=== PATIENT | male | born 1960 | race Caucasian/White ===

== ENCOUNTER 2017-02-15 13:38 | Emergency (ER) | payer OTHER ==
[~2017-02-15] VITALS: Ht 188 cm; Wt 111.4 kg
[2017-02-15] MEDS ORDERED: LISI1TAB7 PO (14:04)
[2017-02-15] MEDS ORDERED: KETOROLAC 30 MG/1 ML ONE (14:14)
[2017-02-15] MEDS ORDERED: DIAZEPAM 5 MG TABLET ONE (14:14)
[2017-02-15] MEDS ORDERED: KETOROLAC 30 MG/1 ML IM ONE (14:30)
[2017-02-15] MEDS ORDERED: DIAZEPAM 5 MG TABLET PO ONE (14:30)
[2017-02-15 15:30] VITALS: BP 162/87
== END 2017-02-15 15:33 ==
LOC: ED 14:43
DX: S39.012A Strain of muscle, fascia and tendon of lower back, initial encounter (principal); M47.896 Other spondylosis, lumbar region; X58.XXXA Exposure to other specified factors, initial encounter; Y93.89 Activity, other specified; Y92.89 Other specified places as the place of occurrence of the external cause; Y99.9 Unspecified external cause status
CPT/HCPCS: 72110; 96372; 99284; J1885

== ENCOUNTER 2017-02-21 19:18 | Emergency (ER) | payer OTHER ==
[~2017-02-21] VITALS: Ht 188 cm; Wt 109.5 kg
[~2017-02-21 19:18] MED LIST: LISI1TAB7 PO
[2017-02-21 19:20] VITALS: BP 167/102
[2017-02-21] MEDS ORDERED: HYDROcodone/APAP 5/325 TABLET ONE (20:14)
[2017-02-21] MEDS ORDERED: HYDROcodone/APAP 5/325 TABLET PO ONE (20:30)
== END 2017-02-21 20:27 | disposition home or self-care (01) ==
LOC: ED 20:21
DX: M54.42 Lumbago with sciatica, left side (principal); M62.830 Muscle spasm of back
CPT/HCPCS: 99283; J7512

== ENCOUNTER → 2020-02-14 | Outpatient (CLI) | payer OTHER ==
[~2020-02-14] MED LIST changes: +LISI1TAB20 PO; -LISI1TAB7 PO
== END | disposition home or self-care (01) ==
LOC: RAD 08:29
PROVIDERS: ATTEND Internal Medicine Cardiovascular Disease
DX: I82.409 Acute embolism and thrombosis of unspecified deep veins of unspecified lower extremity (principal); R60.9 Edema, unspecified; R06.02 Shortness of breath; I48.0 Paroxysmal atrial fibrillation; I10 Essential (primary) hypertension
CPT/HCPCS: 93970

== ENCOUNTER → 2020-02-29 | Outpatient (CLI) | payer OTHER | END | disposition home or self-care (01) | LOC: CVU 06:40 | PROVIDERS: ATTEND Internal Medicine Cardiovascular Disease | DX: I35.8 Other nonrheumatic aortic valve disorders (principal); I48.0 Paroxysmal atrial fibrillation; I10 Essential (primary) hypertension | CPT/HCPCS: C8929; Q9957 ==

== ENCOUNTER 2020-03-14 07:05 | Outpatient (CLI) | payer OTHER | END 2020-03-14 23:59 | disposition home or self-care (01) | LOC: CFH 07:05 | PROVIDERS: ATTEND Internal Medicine Cardiovascular Disease | DX: I25.10 Atherosclerotic heart disease of native coronary artery without angina pectoris (principal); I21.19 ST elevation (STEMI) myocardial infarction involving other coronary artery of inferior wall; I82.409 Acute embolism and thrombosis of unspecified deep veins of unspecified lower extremity; I25.9 Chronic ischemic heart disease, unspecified; I25.5 Ischemic cardiomyopathy; I10 Essential (primary) hypertension | CPT/HCPCS: 78452; 93017; A9502 ==

== ENCOUNTER 2020-04-26 07:57 | Inpatient (IN) | payer OTHER ==
[~2020-04-26] VITALS: Ht 188 cm; Wt 134.0 kg
[~2020-04-26 07:57] MED LIST changes: +CEFUROXIME 1.5 GM in SODIUM CHLORIDE 0.9% 50 ML IVPB ONE; +VANCOMYCIN 1,500 MG in SODIUM CHLORIDE 0.9% 250 ML IVPB ONE
[2020-04-26] MEDS ORDERED: DIPHENHYDRAMINE 50 MG/ML, 1ML IVPush ONE (08:30)
[2020-04-26 08:33] VITALS: BP 120/76
[2020-04-26] MEDS ORDERED: OXYC-307 PO (08:47)
[2020-04-26] MEDS ORDERED: METO-93 PO (08:47)
[2020-04-26] MEDS ORDERED: LISI-170 PO (08:47)
[2020-04-26] MEDS ORDERED: CHLO25TA PO (08:47)
[2020-04-26] MEDS ORDERED: APIX5TAB PO (08:47)
[2020-04-26] MEDS ORDERED: FURO20TA3 PO (08:47)
[2020-04-26] MEDS ORDERED: POTA20TA6 PO (08:47)
[2020-04-26] MEDS ORDERED: METH750T87 PO (08:47)
[2020-04-26] MEDS ORDERED: GABA800T5 PO (08:47)
[2020-04-26] MEDS ORDERED: ASPI-650 PO (08:55)
[2020-04-26] MEDS ORDERED: VERAPAMIL 2.5 MG/ML, 2ML ONE (09:34)
[2020-04-26] MEDS ORDERED: FENTANYL PF 100 MCG/2ML ONE (09:34)
[2020-04-26] MEDS ORDERED: MIDAZOLAM 1 MG/ML, 5ML ONE (09:34)
[2020-04-26] MEDS ORDERED: HEPARIN 1,000 UNITS/ML, 10ML ONE (09:34)
[2020-04-26] MEDS ORDERED: LIDOCAINE-MPF 1%, 5ML ONE (09:34)
[2020-04-26] MEDS ORDERED: DIPHENHYDRAMINE 50 MG/ML, 1ML ONE (10:12)
[2020-04-26] MEDS: SODIUM CHLORIDE 0.9% 1,000 ML IV SCH ×2 (10:53→17:44)
[2020-04-26] MEDS ORDERED: SODIUM CHLORIDE 0.9% 1,000 ML IV SCH (11:00)
[2020-04-26] MEDS ORDERED: GABAPENTIN 400 MG CAPSULE ONE (12:52)
[2020-04-26] MEDS ORDERED: CHLORHEXIDINE 15 ML UDC MM PRN (13:00)
[2020-04-26] MEDS: CHLORTHALIDONE 25 MG TABLET PO SCH (13:00)
[2020-04-26] MEDS ORDERED: INSULIN LISPRO 100 UNITS/ML, PEN SQ-INSULIN SCH (13:00)
[2020-04-26] MEDS: FUROSEMIDE 20 MG TABLET PO SCH (13:00)
[2020-04-26 13:08] LABS: BASOPHILS # (AUTO) 0.03 x10^3/uL (0-0.1); BASOPHILS % (AUTO) 1 % (0-1); EOSINOPHILS # (AUTO) 0.22 x10^3/uL (0-0.4); EOSINOPHILS % (AUTO) 4 % (1-7); LYMPHOCYTES # (AUTO) 1.56 x10^3/uL (1-3.4); LYMPHOCYTES % (AUTO) 29 % (22-44); MD NO; MEAN CORPUSCULAR HEMOGLOBIN 34.2 pg (27.5-34.5); MEAN CORPUSCULAR HGB CONC 33.4 g/dL (33.2-36.2); MEAN CORPUSCULAR VOLUME 102.4 fL (81-97); MEAN PLATELET VOLUME 6.9 fL (7.4-10.4); MONOCYTES # (AUTO) 0.68 x10^3/uL (0.2-0.8); MONOCYTES % (AUTO) 13 % (2-9); NEUTROPHILS # (AUTO) 2.89 x10^3/uL (1.8-6.8); NEUTROPHILS % (AUTO) 54 % (42-75); PLATELET COUNT 168 x10^3/uL (130-400); RED BLOOD COUNT 3.53 x10^6/uL (4.38-5.82); RED CELL DISTRIBUTION WIDTH 14.6 % (9.4-14.8)
[2020-04-26 13:18] LABS: INTERNATIONAL NORMALIZED RATIO 0.98 (0.93-1.1); PROTHROMBIN TIME 10.4 Seconds (9.6-11.5)
[2020-04-26 13:21] LABS: ALANINE AMINOTRANSFERASE 25 U/L (12-78); ALBUMIN 3.1 g/dL (3.4-5.0); ANION GAP 4 mmol/L (5-15); CALCIUM 8.6 mg/dL (8.5-10.1); CHLORIDE 105 mmol/L (98-107)
[2020-04-26 13:23] LABS: ALKALINE PHOSPHATASE 75 U/L (45-117); BILIRUBIN,TOTAL 0.7 mg/dL (0.2-1.0); TOTAL PROTEIN 7.1 g/dL (6.4-8.2)
[2020-04-26 13:58] VITALS: BP 100/64
[2020-04-26] MEDS: GABAPENTIN 400 MG CAPSULE PO SCH ×2 (14:58→21:40)
[2020-04-26] MEDS: OXYcodone/APAP 5/325MG TABLET PO PRN ×2 (15:22→21:45)
[2020-04-26] MEDS: METHOCARBAMOL 750 MG TABLET PO PRN ×2 (15:23→21:45)
[2020-04-26] MEDS ORDERED: GABAPENTIN 400 MG CAPSULE PO SCH (16:00)
[2020-04-26] MEDS: POTASSIUM CHLORIDE 10 MEQ TABLET.ER PO SCH (17:00)
[2020-04-26 17:54] LABS: MICROSCOPIC NOT IND
[2020-04-26 18:44] VITALS: BP 119/77
[2020-04-26] MEDS: SODIUM CHLORIDE FLUSH 10ML SYR IVF SCH (21:40)
[2020-04-27] MEDS: MUPIROCIN OINT 2%, 22GM TP SCH ×2 (00:30→05:46)
[2020-04-27 01:06] VITALS: BP 138/78
[2020-04-27] MEDS: SODIUM CHLORIDE 0.9% 1,000 ML IV SCH (02:53)
[2020-04-27] MEDS ORDERED: METOPROLOL TARTRATE 25 MG TAB PO ONE (05:00)
[2020-04-27] MEDS: OXYcodone/APAP 5/325MG TABLET PO PRN (05:33)
[2020-04-27] MEDS: METHOCARBAMOL 750 MG TABLET PO PRN (05:33)
[2020-04-27] MEDS ORDERED: METOPROLOL SUCCINATE 25 MG TAB.ER.24H PO SCH ×2 (06:00)
[2020-04-27 06:38] VITALS: BP 105/70
[2020-04-27] MEDS: FUROSEMIDE 20 MG TABLET PO SCH (07:40)
[2020-04-27] MEDS: GABAPENTIN 400 MG CAPSULE PO SCH (07:40)
[2020-04-27] MEDS: CHLORTHALIDONE 25 MG TABLET PO SCH (07:40)
[2020-04-27] MEDS: SODIUM CHLORIDE FLUSH 10ML SYR IVF SCH (07:41)
[2020-04-27] MEDS: POTASSIUM CHLORIDE 10 MEQ TABLET.ER PO SCH (07:45)
== END 2020-04-27 10:59 | disposition home health service (06) | DRG 287 ==
LOC: CACL 07:57 → ORIP 12:30 → 5SO 13:26 → DCLOUNGE 04-27 10:48
PROVIDERS: ADMIT Internal Medicine Cardiovascular Disease; ATTEND Internal Medicine Cardiovascular Disease
PROC: 4A023N7 Measurement of Cardiac Sampling and Pressure, Left Heart, Percutaneous Approach (ICD-10-PCS; principal; 2020-04-26)
PROC: B2111ZZ Fluoroscopy of Multiple Coronary Arteries using Low Osmolar Contrast (ICD-10-PCS; 2020-04-26)
PROC: B2151ZZ Fluoroscopy of Left Heart using Low Osmolar Contrast (ICD-10-PCS; 2020-04-26)
DX: I25.10 Atherosclerotic heart disease of native coronary artery without angina pectoris (principal); I48.91 Unspecified atrial fibrillation; I10 Essential (primary) hypertension; I25.82 Chronic total occlusion of coronary artery; Z79.01 Long term (current) use of anticoagulants; Z82.49 Family history of ischemic heart disease and other diseases of the circulatory system
CPT/HCPCS: 36415; 71046; 80053; 81003; 82330; 82803; 82947; 83036; 84132; 84295; 85014; 85025; 85347; 85610; 85730; 86850; 86900; 86923; 87635; 88305; 93005; 93458; 93880; 99156; 99157; C1769; C1894; G0378; J1644; J2250; J3010; J1200; Q9967

== ENCOUNTER 2020-04-30 04:36 | Inpatient (IN) | payer OTHER ==
[~2020-04-30] VITALS: Ht 188 cm; Wt 148.0 kg
[~2020-04-30 04:36] MED LIST changes: +APIX5TAB PO; +ASPI-650 PO; -CEFUROXIME 1.5 GM in SODIUM CHLORIDE 0.9% 50 ML IVPB ONE; +CHLO25TA PO; +FURO20TA3 PO; +GABA800T5 PO; +LISI-170 PO; +METH750T87 PO; +METO-93 PO; +OXYC-307 PO; +POTA20TA6 PO; -VANCOMYCIN 1,500 MG in SODIUM CHLORIDE 0.9% 250 ML IVPB ONE
[2020-04-30] MEDS ORDERED: METOPROLOL TARTRATE 25 MG TAB PO ONE (05:00)
[2020-04-30] MEDS ORDERED: CHLORHEXIDINE 15 ML UDC MM PRN (05:30)
[2020-04-30] MEDS ORDERED: INSULIN LISPRO 100 UNITS/ML, PEN SQ-INSULIN SCH (05:30)
[2020-04-30 05:38] VITALS: BP 108/71
[2020-04-30 05:39] VITALS: BP 109/67
[2020-04-30] MEDS: MUPIROCIN OINT 2%, 22GM TP SCH ×2 (05:45→20:18)
[2020-04-30 06:02] LABS: INTERNATIONAL NORMALIZED RATIO 0.96 (0.93-1.1); PROTHROMBIN TIME 10.2 Seconds (9.6-11.5)
[2020-04-30] MEDS ORDERED: HEPARIN 1,000 UNITS/ML, 10ML ONE (06:15)
[2020-04-30] MEDS ORDERED: PAPAVERINE 30 MG/ML, 2ML ONE (06:15)
[2020-04-30] MEDS ORDERED: FENTANYL PF 250 MCG/5ML ONE ×4 (06:52)
[2020-04-30] MEDS ORDERED: MIDAZOLAM 10MG/2 ML ONE (06:52)
[2020-04-30] MEDS ORDERED: CALCIUM CHLORIDE 13.6 MEQ/10 ML ONE (07:18)
[2020-04-30] MEDS ORDERED: MANNITOL PMX 20% 500 ML IVPB PRN (07:30)
[2020-04-30] MEDS ORDERED: DEXMEDETOMIDINE 200 MCG in SODIUM CHLORIDE 0.9% 48 ML IV PRN ×2 (07:30→07:34)
[2020-04-30] MEDS ORDERED: REGULAR INSULIN 100 UNITS in SODIUM CHLORIDE 0.9% 99 ML IV PRN ×2 (07:30→07:34)
[2020-04-30] MEDS ORDERED: ALBUMIN HUMAN 5% 500 ML IV PRN (07:30)
[2020-04-30] MEDS ORDERED: VANCOMYCIN 1,600 MG in SODIUM CHLORIDE 0.9% 250 ML IV PRN (07:30)
[2020-04-30] MEDS ORDERED: EPINEPHRINE 5 MG in SODIUM CHLORIDE 0.9% 245 ML IV PRN ×2 (07:30→08:00)
[2020-04-30] MEDS ORDERED: POTASSIUM CHLORIDE 80 MEQ, SODIUM BICARBONATE 8.4% 10 MEQ, MAGNESIUM SULFATE 0.5 GM, LI... IV PRN (07:30)
[2020-04-30] MEDS ORDERED: CEFUROXIME 1.5 GM in SODIUM CHLORIDE 0.9% 50 ML IVPB PRN (07:30)
[2020-04-30] MEDS ORDERED: PHENYLEPHRINE 50 MG in SODIUM CHLORIDE 0.9% 245 ML IV PRN ×2 (07:30→07:34)
[2020-04-30] MEDS ORDERED: VASOPRESSIN 20 UNIT in SODIUM CHLORIDE 0.9% 99 ML IV PRN (07:34)
[2020-04-30] MEDS ORDERED: SODIUM CHLORIDE 0.9% 1,000 ML IV PRN (07:34)
[2020-04-30] MEDS ORDERED: DOBUTAMINE 250 MG in SODIUM CHLORIDE 0.9% 230 ML IV PRN (07:34)
[2020-04-30] MEDS ORDERED: NITROGLYCERIN/D5W PMX 250 ML IV PRN (07:34)
[2020-04-30] MEDS ORDERED: PROCHLORPERAZINE 5 MG/ML, 2ML IVPush PRN (08:00)
[2020-04-30] MEDS ORDERED: GLUCAGON 1 MG IM PRN (08:00)
[2020-04-30] MEDS ORDERED: HYDROcodone/APAP 5/325 TABLET PO PRN (08:00)
[2020-04-30] MEDS ORDERED: DEXTROSE 50%, 50ML SYRINGE IVPush PRN (08:00)
[2020-04-30] MEDS ORDERED: DEXTROSE 4 GM TAB.CHEW PO PRN (08:00)
[2020-04-30] MEDS ORDERED: INSULIN REGULAR 100 UNITS/ML, 3ML VIAL IVPush PRN (08:00)
[2020-04-30] MEDS ORDERED: SODIUM BICARB 8.4%, 50ML SYRINGE IV PRN (08:00)
[2020-04-30] MEDS ORDERED: PLEASE ENTER HEIGHT AND WEIGHT MC SCH (08:00)
[2020-04-30] MEDS ORDERED: ACETAMINOPHEN 325 MG TABLET PO PRN (08:00)
[2020-04-30] MEDS ORDERED: MAGNESIUM SULFATE 1 GM in SODIUM CHLORIDE 0.9% 100 ML IVPB SCH ×2 (08:00→13:00)
[2020-04-30] MEDS ORDERED: ACETAMINOPHEN 650 MG SUPP PR PRN (08:00)
[2020-04-30] MEDS ORDERED: MIDAZOLAM 1 MG/ML, 5ML IVPush PRN (08:00)
[2020-04-30] MEDS ORDERED: BISACODYL 10 MG SUPP PR PRN (08:00)
[2020-04-30] MEDS: DOCUSATE 100 MG CAPSULE PO SCH ×2 (09:00→20:36)
[2020-04-30] MEDS: SODIUM CHLORIDE FLUSH 10ML SYR IVF SCH ×4 (09:00→20:18)
[2020-04-30] MEDS: MUPIROCIN OINT 2%, 22GM NAS SCH ×2 (09:00→20:19)
[2020-04-30] MEDS ORDERED: PROPOFOL 10 MG/ML, 20ML ONE (10:12)
[2020-04-30] MEDS ORDERED: ROCURONIUM 10MG/ML,5ML ONE ×3 (10:12)
[2020-04-30] MEDS ORDERED: PROTAMINE SULFATE 10 MG/ML, 25ML ONE ×2 (10:12)
[2020-04-30] MEDS ORDERED: AMINOCAPROIC ACID 250 MG/ML, 20ML ONE ×2 (10:12)
[2020-04-30] MEDS: INSULIN LISPRO 100 UNITS/ML, PEN SQ-INSULIN SCH ×3 (11:00→20:22)
[2020-04-30] MEDS ORDERED: HEPARIN 1,000 UNITS/ML, 30ML ONE ×4 (11:52→11:53)
[2020-04-30] MEDS ORDERED: ALBUMIN HUMAN 25% 50 ML ONE (11:54)
[2020-04-30] MEDS ORDERED: SODIUM BICARB 8.4%, 50ML SYRINGE ONE (11:54)
[2020-04-30] MEDS ORDERED: LIDOCAINE 2%, 20ML ONE (11:55)
[2020-04-30] MEDS ORDERED: SODIUM BICARBONATE 1 MEQ/ML, 50ML VIAL ONE (11:56)
[2020-04-30] MEDS: KSCALE TO 4.5 IV SCH ×2 (12:00→18:00)
[2020-04-30 12:08] LABS: GLUCOSE BY BLOOD GAS ANALYZER 141 mg/dL (70-110); HEMOGLOBIN BY BLOOD GAS ANALYZ 11.2 g/dL (14.0-18.0); POTASSIUM BY BLOOD GAS ANALYZR 3.4 mmol/L (3.6-5.5)
[2020-04-30 12:19] LABS: INTERNATIONAL NORMALIZED RATIO 1.13 (0.93-1.1)
[2020-04-30] MEDS ORDERED: POTASSIUM CHLORIDE 30 MEQ in SODIUM CHLORIDE 0.9% 100 ML IV ONE (12:30)
[2020-04-30] MEDS ORDERED: MORPHINE SULFATE 4 MG/ML, 1ML IVPush PRN (12:30)
[2020-04-30] MEDS ORDERED: MIDAZOLAM 1 MG/ML, 2ML ONE (12:32)
[2020-04-30] MEDS ORDERED: MORPHINE SULFATE 4 MG/ML, 1ML ONE (12:33)
[2020-04-30] MEDS: MAGNESIUM SULFATE/D5W 100 ML IVPB SCH (13:50)
[2020-04-30] MEDS ORDERED: LACTATED RINGERS 1,000 ML IV SCH (14:30)
[2020-04-30] MEDS: OXYcodone IR 5MG TABLET PO PRN ×3 (14:42→21:57)
[2020-04-30] MEDS: FENTANYL PF 100 MCG/2ML IVPush PRN ×3 (15:54→21:57)
[2020-04-30] MEDS: ONDANSETRON 2MG/ML, 2ML IVPush PRN (20:05)
[2020-04-30] MEDS: HYDROcodone/APAP 10/325 MG TABLET PO PRN (20:05)
[2020-04-30] MEDS: VANCOMYCIN 2,000 MG in SODIUM CHLORIDE 0.9% 500 ML IVPB SCH (20:14)
[2020-04-30] MEDS: CEFUROXIME 1.5 GM in SODIUM CHLORIDE 0.9% 50 ML IVPB SCH (20:14)
[2020-05-01] MEDS ORDERED: POTASSIUM CHLORIDE PMX 100 ML IV ONE ×2 (01:00→06:30)
[2020-05-01] MEDS: OXYcodone IR 5MG TABLET PO PRN ×5 (02:30→18:18)
[2020-05-01] MEDS: FENTANYL PF 100 MCG/2ML IVPush PRN ×4 (02:30→06:26)
[2020-05-01] MEDS: HYDROcodone/APAP 10/325 MG TABLET PO PRN ×5 (04:25→21:14)
[2020-05-01 04:37] VITALS: BP 130/70
[2020-05-01 05:29] LABS: BASOPHILS # (AUTO) 0.03 x10^3/uL (0-0.1); BASOPHILS % (AUTO) 0 % (0-1); EOSINOPHILS # (AUTO) 0.02 x10^3/uL (0-0.4); EOSINOPHILS % (AUTO) 0 % (1-7); LYMPHOCYTES # (AUTO) 1.17 x10^3/uL (1-3.4); LYMPHOCYTES % (AUTO) 13 % (22-44); MD NO; MEAN CORPUSCULAR HEMOGLOBIN 34.1 pg (27.5-34.5); MEAN CORPUSCULAR HGB CONC 33.5 g/dL (33.2-36.2); MEAN CORPUSCULAR VOLUME 101.8 fL (81-97); MEAN PLATELET VOLUME 6.9 fL (7.4-10.4); MONOCYTES # (AUTO) 0.81 x10^3/uL (0.2-0.8); MONOCYTES % (AUTO) 9 % (2-9); NEUTROPHILS # (AUTO) 7.28 x10^3/uL (1.8-6.8); NEUTROPHILS % (AUTO) 78 % (42-75); PLATELET COUNT 187 x10^3/uL (130-400); RED BLOOD COUNT 3.09 x10^6/uL (4.38-5.82); RED CELL DISTRIBUTION WIDTH 14.1 % (9.4-14.8)
[2020-05-01 05:32] LABS: ALBUMIN 2.7 g/dL (3.4-5.0); ANION GAP 6 mmol/L (5-15); CALCIUM 7.7 mg/dL (8.5-10.1); CHLORIDE 106 mmol/L (98-107); CREATININE 0.65 mg/dL (0.7-1.3); INTERNATIONAL NORMALIZED RATIO 1.02 (0.93-1.1); PROTHROMBIN TIME 10.8 Seconds (9.6-11.5)
[2020-05-01] MEDS: KSCALE TO 4.5 IV SCH ×2 (06:00)
[2020-05-01] MEDS: ONDANSETRON 2MG/ML, 2ML IVPush PRN (06:26)
[2020-05-01] MEDS: INSULIN LISPRO 100 UNITS/ML, PEN SQ-INSULIN SCH ×4 (06:43→21:00)
[2020-05-01] MEDS: DOCUSATE 100 MG CAPSULE PO SCH ×2 (08:00→21:13)
[2020-05-01] MEDS: CHLORHEXIDINE 15 ML UDC MM SCH ×2 (08:00→21:15)
[2020-05-01] MEDS: METOPROLOL TARTRATE 25 MG TAB PO/NG SCH ×2 (08:01→21:14)
[2020-05-01] MEDS: ASPIRIN 81 MG TABLET EC PO SCH (08:01)
[2020-05-01] MEDS: MUPIROCIN OINT 2%, 22GM NAS SCH ×2 (08:01→22:02)
[2020-05-01] MEDS: MUPIROCIN OINT 2%, 22GM TP SCH ×2 (08:02→21:00)
[2020-05-01] MEDS: SODIUM CHLORIDE FLUSH 10ML SYR IVF SCH ×4 (08:02→21:15)
[2020-05-01] MEDS: CEFUROXIME 1.5 GM in SODIUM CHLORIDE 0.9% 50 ML IVPB SCH (08:02)
[2020-05-01] MEDS ORDERED: KETOROLAC 30 MG/1 ML IVPush ONE (09:30)
[2020-05-01] MEDS: FUROSEMIDE 40 MG/4 ML IV SCH (09:49)
[2020-05-01] MEDS: VANCOMYCIN 2,000 MG in SODIUM CHLORIDE 0.9% 500 ML IVPB SCH (09:50)
[2020-05-01] MEDS: GABAPENTIN 300 MG CAPSULE PO SCH ×3 (11:06→21:14)
[2020-05-01] MEDS: POTASSIUM CHLORIDE 20 MEQ TAB.ER.PRT PO SCH (11:06)
[2020-05-01] MEDS: MAGNESIUM SULFATE/D5W 100 ML IVPB SCH (12:43)
[2020-05-01 20:00] VITALS: BP 117/71
[2020-05-01] MEDS ORDERED: AMIODARONE 150 MG in DEXTROSE 5% 100 ML IV ONE (22:00)
[2020-05-01] MEDS: FILTER 0.22 MICRON IV PRN (22:52)
[2020-05-01] MEDS: AMIODARONE 450 MG in DEXTROSE 5% 241 ML IV PRN (22:53)
[2020-05-02 00:58] VITALS: BP 119/76
[2020-05-02] MEDS: HYDROcodone/APAP 10/325 MG TABLET PO PRN ×6 (01:22→23:46)
[2020-05-02 06:14] LABS: ANION GAP 5 mmol/L (5-15); CHLORIDE 102 mmol/L (98-107)
[2020-05-02 06:15] LABS: CREATININE 0.73 mg/dL (0.7-1.3)
[2020-05-02 06:22] LABS: BASOPHILS # (AUTO) 0.04 x10^3/uL (0-0.1); BASOPHILS % (AUTO) 1 % (0-1); EOSINOPHILS # (AUTO) 0.07 x10^3/uL (0-0.4); EOSINOPHILS % (AUTO) 1 % (1-7); LYMPHOCYTES # (AUTO) 1.57 x10^3/uL (1-3.4); LYMPHOCYTES % (AUTO) 17 % (22-44); MD NO; MEAN CORPUSCULAR HEMOGLOBIN 35.1 pg (27.5-34.5); MEAN CORPUSCULAR HGB CONC 34.6 g/dL (33.2-36.2); MEAN CORPUSCULAR VOLUME 101.6 fL (81-97); MEAN PLATELET VOLUME 7.3 fL (7.4-10.4); MONOCYTES % (AUTO) 11 % (2-9); NEUTROPHILS # (AUTO) 6.49 x10^3/uL (1.8-6.8); NEUTROPHILS % (AUTO) 71 % (42-75); PLATELET COUNT 173 x10^3/uL (130-400); RED BLOOD COUNT 2.58 x10^6/uL (4.38-5.82); RED CELL DISTRIBUTION WIDTH 14.3 % (9.4-14.8)
[2020-05-02 06:50] LABS: INTERNATIONAL NORMALIZED RATIO 1.04 (0.93-1.1)
[2020-05-02] MEDS: INSULIN LISPRO 100 UNITS/ML, PEN SQ-INSULIN SCH (07:23)
[2020-05-02 08:27] VITALS: BP 125/80
[2020-05-02] MEDS: MUPIROCIN OINT 2%, 22GM NAS SCH ×2 (08:46→20:50)
[2020-05-02] MEDS: FILTER 0.22 MICRON IV PRN (08:49)
[2020-05-02] MEDS: AMIODARONE 450 MG in DEXTROSE 5% 241 ML IV PRN (08:49)
[2020-05-02] MEDS: CHLORHEXIDINE 15 ML UDC MM SCH ×2 (08:49→20:49)
[2020-05-02] MEDS: SODIUM CHLORIDE FLUSH 10ML SYR IVF SCH ×4 (08:50→20:47)
[2020-05-02] MEDS: FUROSEMIDE 40 MG/4 ML IV SCH (08:50)
[2020-05-02] MEDS: ASPIRIN 81 MG TABLET EC PO SCH (08:51)
[2020-05-02] MEDS: POTASSIUM CHLORIDE 20 MEQ TAB.ER.PRT PO SCH (08:51)
[2020-05-02] MEDS: DOCUSATE 100 MG CAPSULE PO SCH ×2 (08:51→20:49)
[2020-05-02] MEDS: GABAPENTIN 300 MG CAPSULE PO SCH (08:52)
[2020-05-02] MEDS: METOPROLOL TARTRATE 25 MG TAB PO/NG SCH ×2 (08:52→20:50)
[2020-05-02] MEDS: MUPIROCIN OINT 2%, 22GM TP SCH ×2 (08:53→20:51)
[2020-05-02] MEDS ORDERED: ENOXAPARIN 40 MG/0.4 ML SQ SCH (09:00)
[2020-05-02] MEDS: CLOPIDOGREL 75 MG TABLET PO SCH (10:27)
[2020-05-02] MEDS: LISINOPRIL 20 MG TABLET PO SCH (10:27)
[2020-05-02 13:27] VITALS: BP 101/63
[2020-05-02] MEDS: MAGNESIUM SULFATE/D5W 100 ML IVPB SCH (14:35)
[2020-05-02] MEDS: GABAPENTIN 400 MG CAPSULE PO SCH ×2 (16:24→20:49)
[2020-05-02 19:31] VITALS: BP 115/69
[2020-05-03 00:26] VITALS: BP 103/67
[2020-05-03] MEDS: FILTER 0.22 MICRON IV PRN (00:53)
[2020-05-03] MEDS: AMIODARONE 450 MG in DEXTROSE 5% 241 ML IV PRN (00:54)
[2020-05-03 05:16] LABS: BASOPHILS # (AUTO) 0.03 x10^3/uL (0-0.1); BASOPHILS % (AUTO) 0 % (0-1); EOSINOPHILS # (AUTO) 0.15 x10^3/uL (0-0.4); EOSINOPHILS % (AUTO) 2 % (1-7); LYMPHOCYTES # (AUTO) 1.28 x10^3/uL (1-3.4); LYMPHOCYTES % (AUTO) 17 % (22-44); MD NO; MEAN CORPUSCULAR HEMOGLOBIN 34.7 pg (27.5-34.5); MEAN CORPUSCULAR HGB CONC 33.9 g/dL (33.2-36.2); MEAN CORPUSCULAR VOLUME 102.6 fL (81-97); MEAN PLATELET VOLUME 7.2 fL (7.4-10.4); MONOCYTES # (AUTO) 0.75 x10^3/uL (0.2-0.8); MONOCYTES % (AUTO) 10 % (2-9); NEUTROPHILS # (AUTO) 5.49 x10^3/uL (1.8-6.8); NEUTROPHILS % (AUTO) 71 % (42-75); PLATELET COUNT 175 x10^3/uL (130-400); RED BLOOD COUNT 2.44 x10^6/uL (4.38-5.82); RED CELL DISTRIBUTION WIDTH 14.4 % (9.4-14.8)
[2020-05-03 05:24] LABS: ANION GAP 4 mmol/L (5-15); CALCIUM 7.9 mg/dL (8.5-10.1); CHLORIDE 100 mmol/L (98-107); CREATININE 0.81 mg/dL (0.7-1.3)
[2020-05-03 07:12] VITALS: BP 106/69
[2020-05-03] MEDS: HYDROcodone/APAP 10/325 MG TABLET PO PRN ×4 (07:21→22:49)
[2020-05-03] MEDS ORDERED: ENOXAPARIN 30 MG/0.3 ML SQ SCH (09:00)
[2020-05-03] MEDS: MUPIROCIN OINT 2%, 22GM TP SCH (09:00)
[2020-05-03] MEDS ORDERED: CLOPIDOGREL 75 MG TABLET PO SCH (09:00)
[2020-05-03] MEDS: LISINOPRIL 20 MG TABLET PO SCH (09:08)
[2020-05-03] MEDS: FUROSEMIDE 40 MG/4 ML IV SCH (09:08)
[2020-05-03] MEDS: METOPROLOL TARTRATE 25 MG TAB PO/NG SCH ×2 (09:08→22:48)
[2020-05-03] MEDS: GABAPENTIN 400 MG CAPSULE PO SCH ×3 (09:08→22:48)
[2020-05-03] MEDS: CLOPIDOGREL 75 MG TABLET PO SCH (09:08)
[2020-05-03] MEDS: ASPIRIN 81 MG TABLET EC PO SCH (09:08)
[2020-05-03] MEDS: POTASSIUM CHLORIDE 20 MEQ TAB.ER.PRT PO SCH (09:08)
[2020-05-03] MEDS: DOCUSATE 100 MG CAPSULE PO SCH ×2 (09:08→22:49)
[2020-05-03] MEDS: BISACODYL 5 MG EC TABLET PO PRN (09:09)
[2020-05-03] MEDS: SODIUM CHLORIDE FLUSH 10ML SYR IVF SCH ×4 (09:10→22:47)
[2020-05-03] MEDS: MUPIROCIN OINT 2%, 22GM NAS SCH ×2 (09:21→23:00)
[2020-05-03] MEDS ORDERED: POTASSIUM CHLORIDE 20 MEQ TAB.ER.PRT PO ONE (09:30)
[2020-05-03 12:32] VITALS: BP 94/55
[2020-05-03] MEDS: OXYcodone IR 5MG TABLET PO PRN ×2 (14:32→14:35)
[2020-05-03 19:36] VITALS: BP 120/69
[2020-05-03 22:43] VITALS: BP 119/67
[2020-05-03] MEDS: AMIODARONE 200 MG TABLET PO SCH (22:48)
[2020-05-03] MEDS: APIXABAN 5 MG TABLET PO SCH (22:49)
[2020-05-04 01:11] VITALS: BP 100/65
[2020-05-04] MEDS: HYDROcodone/APAP 10/325 MG TABLET PO PRN ×2 (03:29→08:24)
[2020-05-04 05:47] LABS: BASOPHILS # (AUTO) 0.03 x10^3/uL (0-0.1); BASOPHILS % (AUTO) 1 % (0-1); EOSINOPHILS % (AUTO) 5 % (1-7); LYMPHOCYTES # (AUTO) 1.11 x10^3/uL (1-3.4); LYMPHOCYTES % (AUTO) 18 % (22-44); MD NO; MEAN CORPUSCULAR HEMOGLOBIN 34.3 pg (27.5-34.5); MEAN CORPUSCULAR HGB CONC 33.5 g/dL (33.2-36.2); MEAN CORPUSCULAR VOLUME 102.3 fL (81-97); MEAN PLATELET VOLUME 6.9 fL (7.4-10.4); MONOCYTES # (AUTO) 0.63 x10^3/uL (0.2-0.8); MONOCYTES % (AUTO) 10 % (2-9); NEUTROPHILS # (AUTO) 4.21 x10^3/uL (1.8-6.8); NEUTROPHILS % (AUTO) 67 % (42-75); PLATELET COUNT 201 x10^3/uL (130-400); RED BLOOD COUNT 2.28 x10^6/uL (4.38-5.82); RED CELL DISTRIBUTION WIDTH 14.8 % (9.4-14.8)
[2020-05-04 05:57] LABS: CHLORIDE 104 mmol/L (98-107)
[2020-05-04 06:07] LABS: ANION GAP 6 mmol/L (5-15); CALCIUM 7.7 mg/dL (8.5-10.1); CREATININE 0.84 mg/dL (0.7-1.3)
[2020-05-04 07:10] VITALS: BP 102/65
[2020-05-04] MEDS: DOCUSATE 100 MG CAPSULE PO SCH ×2 (08:24→21:14)
[2020-05-04] MEDS: GABAPENTIN 400 MG CAPSULE PO SCH ×3 (08:24→21:15)
[2020-05-04] MEDS: POTASSIUM CHLORIDE 20 MEQ TAB.ER.PRT PO SCH (08:25)
[2020-05-04] MEDS: CLOPIDOGREL 75 MG TABLET PO SCH (08:25)
[2020-05-04] MEDS: LISINOPRIL 20 MG TABLET PO SCH (08:25)
[2020-05-04] MEDS: AMIODARONE 200 MG TABLET PO SCH ×2 (08:25→21:14)
[2020-05-04] MEDS: APIXABAN 5 MG TABLET PO SCH ×2 (08:25→21:14)
[2020-05-04] MEDS: METOPROLOL TARTRATE 25 MG TAB PO/NG SCH ×2 (08:26→21:15)
[2020-05-04] MEDS: ASPIRIN 81 MG TABLET EC PO SCH (08:26)
[2020-05-04] MEDS: FUROSEMIDE 40 MG/4 ML IV SCH (08:26)
[2020-05-04] MEDS: SODIUM CHLORIDE FLUSH 10ML SYR IVF SCH ×4 (08:26→21:14)
[2020-05-04] MEDS ORDERED: OXYcodone IR 5MG TABLET PO PRN (09:00)
[2020-05-04] MEDS ORDERED: MAGNESIUM HYDROXIDE 8%, 30ML UDC PO PRN (09:00)
[2020-05-04] MEDS: BISACODYL 5 MG EC TABLET PO PRN (10:20)
[2020-05-04] MEDS: MUPIROCIN OINT 2%, 22GM NAS SCH ×2 (10:20→21:14)
[2020-05-04] MEDS ORDERED: LIDOCAINE 1%, 10ML ONE (10:32)
[2020-05-04] MEDS: OXYcodone IR 5MG TABLET PO PRN ×4 (13:01→23:20)
[2020-05-04 13:42] VITALS: BP 100/63
[2020-05-04 19:59] VITALS: BP 123/67
[2020-05-04] MEDS ORDERED: POLYETHYLENE GLYCOL 17 GM PACKET PO SCH (21:00)
[2020-05-05 01:50] VITALS: BP 116/70
[2020-05-05] MEDS: OXYcodone IR 5MG TABLET PO PRN ×3 (04:22→10:23)
[2020-05-05 05:50] LABS: BASOPHILS # (AUTO) 0.13 x10^3/uL (0-0.1); BASOPHILS % (AUTO) 2 % (0-1); EOSINOPHILS # (AUTO) 0.38 x10^3/uL (0-0.4); EOSINOPHILS % (AUTO) 6 % (1-7); LYMPHOCYTES # (AUTO) 1.25 x10^3/uL (1-3.4); LYMPHOCYTES % (AUTO) 20 % (22-44); MD NO; MEAN CORPUSCULAR HGB CONC 33.4 g/dL (33.2-36.2); MEAN CORPUSCULAR VOLUME 101.8 fL (81-97); MEAN PLATELET VOLUME 6.6 fL (7.4-10.4); MONOCYTES % (AUTO) 10 % (2-9); NEUTROPHILS # (AUTO) 3.79 x10^3/uL (1.8-6.8); NEUTROPHILS % (AUTO) 62 % (42-75); PLATELET COUNT 261 x10^3/uL (130-400); RED BLOOD COUNT 2.56 x10^6/uL (4.38-5.82); RED CELL DISTRIBUTION WIDTH 14.4 % (9.4-14.8)
[2020-05-05 05:52] LABS: ANION GAP 5 mmol/L (5-15); CALCIUM 8.9 mg/dL (8.5-10.1); CHLORIDE 102 mmol/L (98-107)
[2020-05-05 05:53] LABS: CREATININE 0.87 mg/dL (0.7-1.3)
[2020-05-05 07:28] VITALS: BP 108/66
[2020-05-05] MEDS: DOCUSATE 100 MG CAPSULE PO SCH (07:30)
[2020-05-05] MEDS: AMIODARONE 200 MG TABLET PO SCH (07:31)
[2020-05-05] MEDS: GABAPENTIN 400 MG CAPSULE PO SCH (07:31)
[2020-05-05] MEDS: POTASSIUM CHLORIDE 20 MEQ TAB.ER.PRT PO SCH (07:31)
[2020-05-05] MEDS: ASPIRIN 81 MG TABLET EC PO SCH (07:31)
[2020-05-05] MEDS: METOPROLOL TARTRATE 25 MG TAB PO/NG SCH (07:31)
[2020-05-05] MEDS: APIXABAN 5 MG TABLET PO SCH (07:31)
[2020-05-05] MEDS: LISINOPRIL 20 MG TABLET PO SCH (07:32)
[2020-05-05] MEDS: FUROSEMIDE 40 MG/4 ML IV SCH (07:32)
[2020-05-05] MEDS: SODIUM CHLORIDE FLUSH 10ML SYR IVF SCH ×2 (07:36)
[2020-05-05] MEDS ORDERED: FURO40TA6 PO (08:31)
[2020-05-05] MEDS ORDERED: AMIO200T42 PO (08:31)
[2020-05-05] MEDS ORDERED: APIX5TAB PO (08:31)
[2020-05-05] MEDS ORDERED: ASPI81TA45 PO (08:31)
[2020-05-05] MEDS ORDERED: OXYC-307 PO (08:37)
[2020-05-05 09:34] VITALS: BP 107/64
== END 2020-05-05 11:15 | disposition home health service (06) | DRG 236 ==
LOC: 5SO 04:36 → CSU 08:19 → 5SO 05-01 17:22 → DCLOUNGE 05-05 11:03
PROVIDERS: ADMIT Counselor Mental Health; ATTEND Counselor Mental Health
PROC: 02100Z9 Bypass Coronary Artery, One Artery from Left Internal Mammary, Open Approach (ICD-10-PCS; principal; 2020-04-30)
PROC: 021109W Bypass Coronary Artery, Two Arteries from Aorta with Autologous Venous Tissue, Open Approach (ICD-10-PCS; 2020-04-30)
PROC: 06BQ0ZZ Excision of Left Saphenous Vein, Open Approach (ICD-10-PCS; 2020-04-30)
PROC: 5A1221Z Performance of Cardiac Output, Continuous (ICD-10-PCS; 2020-04-30)
PROC: 02L70ZK Occlusion of Left Atrial Appendage, Open Approach (ICD-10-PCS; 2020-04-30)
PROC: B24BZZ4 Ultrasonography of Heart with Aorta, Transesophageal (ICD-10-PCS; 2020-04-30)
DX: I25.10 Atherosclerotic heart disease of native coronary artery without angina pectoris (principal); I48.91 Unspecified atrial fibrillation
CPT/HCPCS: 32555; 36415; 36600; J3490; S0017; 71045; 71046; 80048; 82040; 82800; 82803; 82810; 82947; 82962; 83735; 84132; 85014; 85018; 85025; 85049; 85610; 85730; 86850; 86900; 86923; 87081; 93005; 93312; 93321; 93325; 94002; G0378; J0171; J0697; J1644; J1650; J1815; J1885; J1940; J2250; J2405; J2704; J2720; J3010; J3370; J3475; J3480; J7060; P9045; P9047; J0282; J2270; J2370; J2440; J7040; J7050; J7120

== ENCOUNTER → 2020-05-28 | Outpatient (CLI) | payer OTHER ==
[~2020-05-28] MED LIST changes: +AMIO200T42 PO; +ASPI81TA45 PO; +FURO40TA6 PO
== END | disposition home or self-care (01) ==
LOC: CVU 08:03
PROVIDERS: ATTEND Internal Medicine Cardiovascular Disease
DX: I82.811 Embolism and thrombosis of superficial veins of right lower extremity (principal); I97.621 Postprocedural hematoma of a circulatory system organ or structure following other procedure
CPT/HCPCS: 93971

== ENCOUNTER 2021-04-03 07:47 | Outpatient (CLI) | payer OTHER ==
[~2021-04-03 07:47] MED LIST changes: +ASPI-1026 PO; -ASPI-650 PO; -OXYC-307 PO; +OXYC-380 PO
== END 2021-04-03 23:59 | disposition home or self-care (01) ==
LOC: CVU 07:47
PROVIDERS: ATTEND Internal Medicine Cardiovascular Disease
DX: I11.9 Hypertensive heart disease without heart failure (principal); I48.0 Paroxysmal atrial fibrillation; I25.10 Atherosclerotic heart disease of native coronary artery without angina pectoris; Z95.1 Presence of aortocoronary bypass graft; Z87.891 Personal history of nicotine dependence
CPT/HCPCS: C8929; Q9957